=== PATIENT | female | born 1990 | race Caucasian/White ===

== ENCOUNTER 2017-03-22 18:23 | Emergency (ER) | payer OTHER ==
[~2017-03-22] VITALS: Ht 167.6 cm; Wt 104.0 kg
[2017-03-22 18:32] VITALS: Ht 167.6 cm; Wt 104.0 kg
--- NOTE | 2017-03-22 21:43 | ERD ---
ER Documentation Chief Complaint Date/Time DATE: 03/22/17 TIME: 21:37 Chief Complaint Pt sent by [facility]-tax senior associate for bleeding for 11 days HPI 26-year-old female with a history of dysfunctional uterine bleeding presents the emergency department for complaints of vaginal bleeding with cramping 11 days. Patient states that one month ago she was seen by her [facility] for similar symptoms and placed on control, which helped to control the bleeding for 1 month. She states that she started her period which has lasted now for 7 days And reports using approximately 1 pad per hour. She went to her [facility] specialist for a follow-up today but could not see her as her insurance has switched. Her [facility] recommended that she come to the emergency department to be evaluated. She denies any fever, chills, vaginal discharge, abdominal pain, vomiting, diarrhea. ROS All systems reviewed and are negative except as per history of present illness. Medications Home Meds Active Scripts Naproxen* (Naprosyn*) 500 Mg Tablet, 500 MG PO BID for 7 Days, TAB Prov:SMITA AYALA PA-C 03/22/17 Norgestimate-Ethinyl Estradiol (Ortho-Cyclen 28 Tablet) 1 Each Tablet, 1 EACH PO DAILY for 28 Days, TAB 3 Refills Prov:SMITA AYALA PA-C 03/22/17 Allergies Allergies: Coded Allergies: No Known Allergy (Unverified , 08/21/13) PMhx/Soc Medical and Surgical Hx: pt denies Medical Hx, pt denies Surgical Hx History of Surgery: No Anesthesia Reaction: No Hx Neurological Disorder: No Hx Respiratory Disorders: No Hx Cardiac Disorders: No Hx Psychiatric Problems: No Hx Miscellaneous Medical Probl: No Hx Alcohol Use: No Hx Substance Use: No Hx Tobacco Use: No Smoking Status: Never smoker Physical Exam Vitals Vital Signs Date Time Temp Pulse Resp B/P Pulse Ox O2 Delivery O2 Flow Rate FiO2 03/22/17 23:22 98.1 65 18 123/76 98 Room Air 03/22/17 18:32 98.4 72 18 134/86 98 Physical Exam Const: Well-developed, well-nourished, in no acute distress Head: Atraumatic Eyes: Negative conjunctival pallor Neck: Full range of motion..~ No meningismus. Resp: Clear to auscultation bilaterally Cardio: Regular rate and rhythm, no murmurs Abd: Soft, non tender, non distended. Normal bowel sounds Skin: No pallor,No petechiae or rashes Back: No midline or flank tenderness Ext: No cyanosis, or edema Neur: Awake and alert Psych: Normal Mood and Affect Result Diagram: 03/22/17219903/22/172199 Results 24 hrs Laboratory Tests Test 03/22/17 21:41 03/22/17 22:00 Urine Color YELLOW Urine Clarity SLIGHTLY CLOUDY Urine pH 6.0 Urine Specific [place] 1.021 Urine Ketones NEGATIVEmg/dL Urine Nitrite NEGATIVEmg/dL Urine Bilirubin NEGATIVEmg/dL Urine Urobilinogen NEGATIVEmg/dL Urine Leukocyte Esterase TRACELeu/ul Urine Microscopic RBC > 182/HPF Urine Microscopic WBC 8/HPF Urine Squamous Epithelial Cells MODERATE/HPF Urine Mucus FEW/HPF Urine Hemoglobin 3+mg/dL Urine Glucose NEGATIVEmg/dL Urine Total Protein 2+mg/dl White Blood Count 7.310^3/ul Red Blood Count 4.2110^6/ul Hemoglobin 13.5g/dl Hematocrit 39.8% Mean Corpuscular Volume 94.5fl Mean Corpuscular Hemoglobin 32.1pg Mean Corpuscular Hemoglobin Concent 33.9g/dl Red Cell Distribution Width 11.9% Platelet Count 74981^3/UL Mean Platelet Volume 10.2fl Neutrophils % 51.9% Lymphocytes % 37.3% Monocytes % 8.5% Eosinophils % 1.5% Basophils % 0.4% Nucleated Red Blood Cells % 0.0/100WBC Neutrophils # (Manual) 3.810^3/ul Lymphocytes # 2.710^3/ul Monocytes # 0.610^3/ul Eosinophils # 0.110^3/ul Basophils # 0.010^3/ul Nucleated Red Blood Cells # 0.010^3/ul Sodium Level 141mmol/L Potassium Level 4.0mmol/L Chloride Level 103mmol/L Carbon Dioxide Level 28mmol/L Anion Gap 14 Blood Urea Nitrogen 8mg/dl Creatinine 0.66mg/dl Glucose Level 90mg/dl Calcium Level 10.0mg/dl Total Bilirubin 0.2mg/dl Direct Bilirubin 0.00mg/dl Indirect Bilirubin 0.2mg/dl Aspartate Amino Transf (AST/SGOT) 15IU/L Alanine Aminotransferase (ALT/SGPT) 22IU/L Alkaline Phosphatase 95IU/L Total Protein 8.8g/dl Albumin 4.5g/dl Globulin 4.30g/dl Albumin/Globulin Ratio 1.04 Procedures/MDM PROCEDURE: ULTRASOUND EVALUATION OF THE FEMALE PELVIS: CLINICAL INDICATION: 26 years of age, female, 11-day history of vaginal bleeding . COMPARISON: None available. TECHNIQUE: Real-time sonographic images of the pelvis were obtained transabdominally and transvaginally utilizing marni scale, color, and Doppler imaging. FINDINGS: LMP: February 06, 2017 Uterus: Appearance: Normal. Position: Retroflexed Size: 6.2 x 3.9 x 4.8 cm. (Volume 60.4 mL) Endometrial stripe: 1 cm. Negative for vascularity. Secretory phase. Right ovary and adnexa: Size: 4.7 x 2.5 x 2.6 cm. (Volume 15.8 mL) Appearance: Normal morphology. No masses. Arterial flow present. Left ovary and adnexa: Size: 4.1 x 2.2 x 2 cm. (Volume 9.4 mL) Appearance: Normal morphology. No masses. Arterial flow present. Free fluid: None IMPRESSION: Normal ultrasound evaluation of the female pelvis. Endometrium measures 1 cm in keeping with the latter half of the menstrual cycle. RPTAT: HCTS Physician Scott Date Time Electronically viewed and signed by Physician Scott on 03/22/2017 22: 47 CS/ CC: SMITA AYALA PA-C This is a 26-year-old female with a history of dysfunctional uterine bleeding who presents to the emergency department for complaints of heavy bleeding 11 days. Upon arrival, patient well-appearing, nontoxic, and in no acute distress. Vitals vital signs reviewed and within normal limits.Physical exam without evidence of pallor, abdominal tenderness, distention or flank tenderness. CBC showed no evidence of systemic infection or severe anemia. CMP showed no evidence of electrolyte abnormalities, severe acidosis, alkalosis , renal failure, or liver disease. UA showed no evidence of acute infection or hematuria. Urine test was Ordered but not recorded by nursing staff. Pelvic ultrasound Without evidence of mass or ovarian cyst. No evidence of ovarian torsion. History and physical exam consistent with persistent heavy vaginal bleeding as a result of dysfunctional uterine bleeding. At this time low suspicion for any acute process including ectopic , ovarian torsion, ovarian cyst, tubo- ovarian abscess, appendicitis, pelvic disease, or urinary tract infection. Patient states she is unable to see her [facility] specialist as her insurance changed. I will begin the patient on an alternative oral contraceptive and provide her with resources for community [facility] specialist. Patient received fluids and pain medication while in the emergency department and reported improvement of symptoms. Based on patient's history of present illness and physical examination the decision was made to discharge. The patient was re-evaluated after ED treatment and stabilizing measures, and symptoms have improved. There is no evidence of life threatening injuries or illnesses at this time. On re-examination, patient resting in no distress, stable vital signs, reports feeling better and safe for discharge with outpatient follow up with PMD in 1-2 days. Patient given return precautions. Departure Diagnosis: Primary Impression: Vaginal bleeding Additional Impression: Excessive vaginal bleeding SMITA AYALA PA-C Mar 22, 2017 21:43
[2017-03-22 22:14] LABS: ADD UMIC YES; UR ASCORBIC ACID 40 mg/dL (NEGATIVE); UR BILIRUBIN (Dip) NEGATIVE (NEGATIVE); UR BLOOD (Dip) 3+ mg/dL (NEGATIVE); UR CLARITY SLIGHTLY CLOUDY (CLEAR); UR COLOR YELLOW (YELLOW); UR GLUCOSE (Dip) NEGATIVE (NEGATIVE); UR KETONES (Dip) NEGATIVE (NEGATIVE); UR LEUKOCYTE ESTERASE (Dip) TRACE Leu/ul (NEGATIVE); UR MUCUS FEW /HPF (NONE SEEN); UR NITRITE (Dip) NEGATIVE (NEGATIVE); UR RBC > 182 /HPF (0-5); UR SPECIFIC GRAVITY (Dip) 1.021 (1.003-1.030); UR SQUAMOUS EPITHELIAL CELL MODERATE /HPF (FEW); UR TOTAL PROTEIN (Dip) 2+ mg/dl (NEGATIVE); UR UROBILINOGEN (Dip) NEGATIVE (NEGATIVE)
[2017-03-22 22:44] LABS: BASOPHILS % 0.4 % (0.0-2.0); EOSINOPHILS # 0.1 10^3/ul (0.0-0.5); EOSINOPHILS % 1.5 % (0.0-7.0); HEMATOCRIT 39.8 % (37.0-47.0); HEMOGLOBIN 13.5 g/dl (12.0-16.0); LYMPHOCYTES # 2.7 10^3/ul (0.8-2.9); LYMPHOCYTES % 37.3 % (15.0-51.0); MEAN CORPUSCULAR HEMOGLOBIN 32.1 pg (29.0-33.0); MEAN CORPUSCULAR HGB CONC 33.9 g/dl (32.0-37.0); MEAN CORPUSCULAR VOLUME 94.5 fl (82.0-101.0); MEAN PLATELET VOLUME 10.2 fl (7.4-10.4); MONOCYTE # 0.6 10^3/ul (0.3-0.9); MONOCYTES % 8.5 % (0.0-11.0); NEUTROPHILS % 51.9 % (39.0-77.0); PLATELET COUNT 255 10^3/UL (140-415); RED BLOOD COUNT 4.21 10^6/ul (4.20-5.40); RED CELL DISTRIBUTION WIDTH 11.9 % (11.5-14.5); WHITE BLOOD COUNT 7.3 10^3/ul (4.8-10.8)
--- NOTE | 2017-03-22 22:48 | RADRPT ---
PROCEDURE: ULTRASOUND EVALUATION OF THE FEMALE PELVIS: CLINICAL INDICATION: 26 years of age, female, 11-day history of vaginal bleeding . COMPARISON: None available. TECHNIQUE: Real-time sonographic images of the pelvis were obtained transabdominally and transvagina lly utilizing marin scale, color, and Doppler imaging. FINDINGS: LMP: February 06, 2017 Uterus: Appearance: Normal. Position: Retroflexed Size: 6.2 x 3.9 x 4.8 cm. (Volume 60.4 mL) Endometrial stripe: 1 cm. Negative for vascularity. Secretory phase. Right ovary and adnexa: Size: 4.7 x 2.5 x 2.6 cm. (Volume 15.8 mL) Appearance: Normal morphology. No masses. Arterial flow present. Left ovary and adnexa: Size: 4.1 x 2.2 x 2 cm. (Volume 9.4 mL) Appearance: Normal morphology. No masses. Arterial flow present. Free fluid: None IMPRESSION: Normal ultrasound evaluation of the female pelvis. Endometrium measures 1 cm in keeping with the lat ter half of the menstrual cycle. RPTAT: HCTS Physician Scott Date Time Electronically viewed and signed by Physician Scott on 03/22/2017 22:47 CS/
[2017-03-22 23:05] LABS: ALBUMIN 4.5 g/dl (3.3-4.9); ALBUMIN/GLOBULIN RATIO 1.04; BILIRUBIN,INDIRECT 0.2 mg/dl (0-1.1); BILIRUBIN,TOTAL 0.2 mg/dl (0.2-1.3); CREATININE 0.66 mg/dl (0.44-1.00); TOTAL PROTEIN 8.8 g/dl (6.1-8.1)
[2017-03-22] MEDS ORDERED: NAPR-260 PO (23:13)
[2017-03-22] MEDS ORDERED: NORG1TAB35 PO (23:13)
[2017-03-22 23:22] VITALS: BP 123/76; PULSE 65; RESP 18; TEMP 98.1
== END 2017-03-22 23:23 | disposition home or self-care (01) ==
LOC: FTE 18:23
DX: N93.9 Abnormal uterine and vaginal bleeding, unspecified (principal)
CPT/HCPCS: 36415; 76830; 76856; 80053; 81001; 85025; Z7502

== ENCOUNTER 2019-01-02 08:51 | Emergency (ER) | payer BC, OTHER ==
[~2019-01-02] VITALS: Ht 170.2 cm; Wt 113.9 kg
[~2019-01-02 08:51] MED LIST: NAPR-985 PO; NORG1TAB35 PO
[2019-01-02 09:08] VITALS: BP 149/64; PULSE 72; RESP 18; Ht 170.2 cm; Wt 113.9 kg
[2019-01-02] MEDS ORDERED: IBUP800T48 PO (09:54)
--- NOTE | 2019-01-02 09:55 | ERD ---
ER Documentation Chief Complaint Chief Complaint LEFT LOWER BACK PAIN X3MTHS, DENIES PAINFUL URINATION HPI 28-year-old female presenting with right flank pain x3 months. She reports the pain is intermittent and goes away for couple days and then comes back. She denies any known triggers from pain, she denies any injuries or falls. She denies any past injuries to her back. She states that the pain usually gets better with taking Tylenol, Advil, [place]. Ports the pain as 10 out of 10 sharp pain at worst intensity. She denies radiation of the pain. She denies any fevers, painful urination, saddle anesthesia, loss of bowel or bladder function. Reports no past medical history. ROS All systems reviewed and are negative except as per history of present illness. Medications Home Meds Active Scripts Ibuprofen* (Motrin*) 800 Mg Tab, 800 MG PO Q6H PRN for PAIN AND OR ELEVATED TEMP, #30 TAB Prov:NARGIS DUNAWAY PA-C 01/02/19 Naproxen* (Naprosyn*) 500 Mg Tablet, 500 MG PO BID for 7 Days, TAB Prov:SMITA AYALA PA-C 03/22/17 Norgestimate-Ethinyl Estradiol (Ortho-Cyclen 28 Tablet) 1 Each Tablet, 1 EACH PO DAILY for 28 Days, TAB 3 Refills Prov:SMITA AYALA PA-C 03/22/17 Allergies Allergies: Coded Allergies: No Known Allergy (Unverified , 08/21/13) PMhx/Soc Medical and Surgical Hx: pt denies Medical Hx History of Surgery: No Anesthesia Reaction: No Hx Neurological Disorder: No Hx Respiratory Disorders: No Hx Cardiac Disorders: No Hx Psychiatric Problems: No Hx Miscellaneous Medical Probl: No Hx Alcohol Use: No Hx Substance Use: No Hx Tobacco Use: No Smoking Status: Never smoker FmHx Family History: No diabetes Physical Exam Vitals Vital Signs Date Temp Pulse Resp B/P (MAP) Pulse Ox O2 O2 Flow FiO2 Time Delivery Rate 01/02/19 98.1 72 18 149/64 98 09:08 (92) Physical Exam Const: No acute distress Head: Atraumatic Eyes: Normal Conjunctiva ENT: Normal External Ears, Nose and Mouth. Neck: Full range of motion. Resp: Clear to auscultation bilaterally Cardio: Regular rate and rhythm Abd: Soft, non tender, obese Skin: No petechiae or rashes Back: Localized tenderness to the right flank superficial muscles Ext: No cyanosis, or edema Neur: Awake and alert Psych: Normal Mood and Affect Results 24 hrs Laboratory Tests Test 01/02/19 09:31 01/02/19 09:36 Urine Color YELLOW Urine Clarity SLIGHTLY CLOUDY Urine pH 6.0 Urine Specific [place] 1.018 Urine Ketones NEGATIVE mg/dL Urine Nitrite NEGATIVE mg/dL Urine Bilirubin NEGATIVE mg/dL Urine Urobilinogen NEGATIVE mg/dL Urine Leukocyte Esterase NEGATIVE Tammie/ul Urine Microscopic RBC 2 /HPF Urine Microscopic WBC 3 /HPF Urine Squamous Epithelial Cells FEW /HPF Urine Mucus FEW /HPF Urine Hemoglobin NEGATIVE mg/dL Urine Glucose NEGATIVE mg/dL Urine Total Protein NEGATIVE mg/dl POC Beta HCG, Qualitative NEGATIVE Procedures/MDM ED COURSE: The patient was stable throughout ED course. I kept the patient informed of laboratory and diagnostic imaging results throughout the ED course. PROCEDURES: Urinalysis MEDICATIONS GIVEN: [None.] MEDICAL DECISION MAKING: Patient is a 28-year-old female presenting with right flank pain x3 months. During physical exam pain is reproduced when I pressed on it. She reported that the pain is intermittent and usually gets better with Tylenol, Advil or [place] pain medication. Urinalysis was done and was normal. Appears to be mu sculoskeletal. H&P and other data not c/w emergent process (eg. LALO, obstructed pyelo, AAA, CAUDA EQUINA SYNDROME, CORD COMPRESSION, INFILTRATIVE, INFECTIOUS ETIOLOGY, EPIDURAL ABSCESS, FRACTURE). Vital signs were reviewed. Patient is afebrile. Patient was not hypoxic. Patient was hemodynamically stable. PRESCRIPTION: Ibuprofen DISCHARGE: At this time, patient is stable for discharge and outpatient management. I have instructed the patient to follow-up with his/her primary care physician in 1-2 days. I have discussed with the patient the possibility of needing to see a specialist for further workup and imaging studies if symptoms persist. I have instructed the patient to promptly return to the ER for any new or worsening symptoms including increased pain, fever, nausea, vomiting, weakness or LOC. The patient and/or family expressed understanding of and agreement with this plan. All questions were answered. Home care instructions were provided. Disclaimer: Inadvertent spelling and grammatical errors are likely due to EHR/dictation software use and do not reflect on the overall quality of patient care. Also, please note that the electronic time recorded on this note does not necessarily reflect the actual time of the patient encounter. Departure Diagnosis: Primary Impression: Back pain Back pain location: low back pain Chronicity: chronic Back pain laterality: right Sciatica presence: without sciatica Qualified Codes: M54.5 - Low back pain; G89.29 - Other chronic pain Condition: Fair Patient Instructions: Back Pain (Acute Or Chronic) Additional Instructions: Call your primary care doctor TOMORROW for an appointment during the next 1-2 days.See the doctor sooner or return here if your condition worsens before your appointment time. NARGIS DUNAWAY PA-C Jan 02, 2019 09:55
== END 2019-01-02 10:15 | disposition home or self-care (01) ==
LOC: FTE 08:51
DX: M54.5 Low back pain (principal)
CPT/HCPCS: 81001; 81003; 81025; 99283